=== PATIENT | female | born 1990 | race Caucasian/White ===

== ENCOUNTER 2017-04-22 22:36 | Emergency (ER) | payer SELFPAY | END 2017-04-23 06:35 | disposition home or self-care (01) | LOC: CED 22:36 | DX: F15.10 Other stimulant abuse, uncomplicated (principal); G40.909 Epilepsy, unspecified, not intractable, without status epilepticus; F17.200 Nicotine dependence, unspecified, uncomplicated; F13.10 Sedative, hypnotic or anxiolytic abuse, uncomplicated; Z90.49 Acquired absence of other specified parts of digestive tract | CPT/HCPCS: 99284 ==